=== PATIENT | female | born 1995 | race African-American/Black ===

== ENCOUNTER 2024-07-22 07:55 | Emergency (ER) | payer MEDICAID ==
[~2024-07-22] VITALS: Ht 165.1 cm; Wt 90.0 kg
[2024-07-22 07:58] VITALS: O2SAT 99
[2024-07-22 08:24] VITALS: TEMP 36.6
[2024-07-22] MEDS: ONDANSETRON HCL 4MG/2ML INJ IV ONE (08:49)
[2024-07-22] MEDS: LACTATED RINGERS 1,000 ML IV SCH (08:54)
[2024-07-22] MEDS: ACETAMINOPHEN 325MG TABLET PO ONE (09:05)
[2024-07-22 09:27] LABS: CHLORIDE 108 mEq/L (98-107); POTASSIUM 4.1 mEq/L (3.5-5.1); SODIUM 142 mEq/L (136-145)
[2024-07-22 09:28] LABS: CARBON DIOXIDE 27 mEq/L (21-32)
[2024-07-22 09:29] LABS: CALCIUM 9.1 mg/dL (8.7-10.4)
[2024-07-22 09:30] LABS: BASOPHILS % 0.6 % (0.0-2.0); DIFFERENTIAL COMMENT 0; EOSINOPHILS % 1.8 % (0.0-5.0); HEMATOCRIT. 35.9 % (36.0-48.0); HEMOGLOBIN. 11.5 g/dL (12.0-16.0); LYMPHOCYTES % 23.5 % (20.0-50.0); MEAN CORPUSCULAR HEMOGLOBIN 28.5 pg (28.0-32.0); MEAN CORPUSCULAR HGB CONC 32.1 g/dL (31.0-37.0); MEAN CORPUSCULAR VOLUME 88.7 fL (81.0-99.0); MEAN PLATELET VOLUME 8.6 fl (7.4-10.4); MONOCYTES % 7.5 % (2.0-8.0); NEUTROPHILS % 66.6 % (40.0-76.0); PLATELET 246 x1000/uL (130-400); RED BLOOD CELL COUNT 4.04 mill/uL (4.2-5.4); RED CELL DISTRIBUTION WIDTH 15.8 % (11.6-14.6); WHITE BLOOD COUNT 5.7 x1000/uL (4.5-11.0)
[2024-07-22 09:33] LABS: CREATININE 0.9 mg/dL (0.6-1.0)
[2024-07-22 09:34] LABS: GLUCOSE 88 mg/dL (70-105); UREA NITROGEN BLOOD 10 mg/dL (9-23)
[2024-07-22 09:35] LABS: ALANINE AMINOTRANSFERASE 18 IU/L (10-49); ASPARTATE AMINOTRANSFERASE 25 IU/L (<34)
[2024-07-22 09:36] LABS: BILIRUBIN DIRECT 0.1 mg/dL (<=3.0); BILIRUBIN TOTAL 0.4 mg/dL (0.1-1.0); PROTEIN TOTAL 6.9 g/dL (6.0-8.3)
[2024-07-22 09:38] LABS: HCG SCREEN NEGATIVE
[2024-07-22 11:01] VITALS: BP 126/80; PULSE 53; RESP 19; O2SAT 100
[2024-07-22] MEDS ORDERED: KETO10TA2 MT (11:06)
[2024-07-22] MEDS ORDERED: ONDA-239 PO (11:06)
== END 2024-07-22 11:35 | disposition home or self-care (01) ==
LOC: ER 07:55
DX: K80.20 Calculus of gallbladder without cholecystitis without obstruction (principal)
CPT/HCPCS: 80076; 80048; 84703; 83690; 85025; 36415; 76705; 96361; 96374; 99285; J2405; Z7610

== ENCOUNTER 2024-11-08 19:59 | Emergency (ER) | payer MEDICAID, OTHER ==
[~2024-11-08] VITALS: Ht 165.1 cm; Wt 73.0 kg
[~2024-11-08 19:59] MED LIST: KETO10TA2 MT; ONDA-239 PO
[2024-11-08 20:04] VITALS: BP 152/78; PULSE 94; RESP 18; TEMP 36.9; O2SAT 99
[2024-11-08] MEDS ORDERED: TETANUS, DIPHTHERIA, PERTUSSIS VAC/PF 0.5ML (>10YR OLD) IM ONE (20:15)
[2024-11-08] MEDS ORDERED: AMOXICILLIN/POTASSIUM CLAVULANATE 875/125MG TAB PO ONE (20:15)
[2024-11-08] MEDS: ACETAMINOPHEN 325MG TABLET PO ONE (21:25)
== END 2024-11-08 21:44 ==
LOC: ER 19:59
DX: S00.511A Abrasion of lip, initial encounter (principal); S00.81XA Abrasion of other part of head, initial encounter; Y08.89XA Assault by other specified means, initial encounter; Y93.89 Activity, other specified; Y92.89 Other specified places as the place of occurrence of the external cause; Y99.8 Other external cause status
CPT/HCPCS: 99283

== ENCOUNTER 2024-12-24 07:04 | Emergency (ER) | payer MEDICAID, OTHER ==
[~2024-12-24] VITALS: Ht 167.6 cm; Wt 91.0 kg
[2024-12-24 07:24] VITALS: TEMP 36.8; O2SAT 98
[2024-12-24 08:04] LABS: BASOPHILS % 0.3 % (0.0-2.0); EOSINOPHILS % 1.4 % (0.0-5.0); HEMATOCRIT. 31.6 % (36.0-48.0); HEMOGLOBIN. 10.6 g/dL (12.0-16.0); LYMPHOCYTES % 24.6 % (20.0-50.0); MEAN PLATELET VOLUME 8.0 fl (7.4-10.4); MONOCYTES % 7.1 % (2.0-8.0); NEUTROPHILS % 66.6 % (40.0-76.0); PLATELET 260 x1000/uL (130-400); RED BLOOD CELL COUNT 3.58 mill/uL (4.2-5.4); RED CELL DISTRIBUTION WIDTH 14.5 % (11.6-14.6)
[2024-12-24 08:21] LABS: CREATININE 0.9 mg/dL (0.6-1.0); UREA NITROGEN BLOOD 7 mg/dL (9-23)
[2024-12-24 08:29] LABS: HCG SCREEN NEGATIVE
[2024-12-24 09:16] VITALS: BP 116/47; PULSE 52; RESP 16; O2SAT 100
== END 2024-12-24 09:17 | disposition home or self-care (01) ==
LOC: ER 07:04
DX: M79.89 Other specified soft tissue disorders (principal)
CPT/HCPCS: 36415; 71045; 80048; 84703; 85025; 93970; 99284